=== PATIENT | female | born 1945 | race Hispanic/Latino ===

== ENCOUNTER 2017-12-04 07:09 | Day surgery (SDC) | payer MEDICARE ==
[~2017-12-04] VITALS: Ht 157.5 cm; Wt 80.7 kg
[~2017-12-04 07:09] MED LIST: AMLO5TAB2 PO; ASPI-555 PO; BACL10TA PO; CETI10CA5 PO; CLOB30CR5 TP; CYAN250014 PO; DICL2100G TP; DOCU100T9 PO; FISH1CAP49 PO; FURO40TA5 PO; LACT10SO32 PO; LOVA40TA2 PO; NAPR220C15 PO; OMEP-272 PO; POTA10TA11 PO; SODIUM CHLORIDE 0.9% 1000ML 1,000 ML IV ONE; TRAM50TA4 PO
[2017-12-04 07:56] VITALS: BP 111/67
[2017-12-04 09:00] VITALS: BP 83/40
== END 2017-12-04 09:35 | disposition home or self-care (01) ==
LOC: DAH 07:09
PROVIDERS: ATTEND Internal Medicine Gastroenterology
DX: K57.30 Diverticulosis of large intestine without perforation or abscess without bleeding (principal); K21.9 Gastro-esophageal reflux disease without esophagitis; I10 Essential (primary) hypertension; E78.5 Hyperlipidemia, unspecified; E11.9 Type 2 diabetes mellitus without complications; M19.90 Unspecified osteoarthritis, unspecified site; K44.9 Diaphragmatic hernia without obstruction or gangrene; Z79.899 Other long term (current) drug therapy; K31.89 Other diseases of stomach and duodenum; Z68.35 Body mass index [BMI] 35.0-35.9, adult; Z90.710 Acquired absence of both cervix and uterus; Z83.3 Family history of diabetes mellitus; I25.10 Atherosclerotic heart disease of native coronary artery without angina pectoris
CPT/HCPCS: 43239; 45378; 82948 ×2; 88305; 88312; 88342; 93005; A4606; J7030

== ENCOUNTER → 2019-11-18 | Outpatient (CLI) | payer MEDICARE ==
[~2019-11-18] MED LIST changes: -AMLO5TAB2 PO; +AMLO5TAB9 PO; -SODIUM CHLORIDE 0.9% 1000ML 1,000 ML IV ONE
== END | disposition home or self-care (01) ==
LOC: RAH 06:49
PROVIDERS: ATTEND Internal Medicine Gastroenterology
DX: R14.0 Abdominal distension (gaseous) (principal)
CPT/HCPCS: 78264; A9541